=== PATIENT | female | born 1965 | race Asian ===

== ENCOUNTER 2020-02-03 05:18 | Emergency (ER) | payer MEDICAID ==
[~2020-02-03] VITALS: Ht 154.9 cm; Wt 55.5 kg
[2020-02-03] MEDS ORDERED: SIMV-260 PO (05:28)
[2020-02-03] MEDS ORDERED: METF-960 PO (05:28)
[2020-02-03] MEDS ORDERED: LISI-661 PO (05:28)
[2020-02-03 06:37] LABS: BASOPHILS % (AUTO) 0.4 % (0.0-2.0); EOSINOPHILS % (AUTO) 3.6 % (1.0-6.0); HEMOGLOBIN 13.1 g/dL (12.0-16.0); LYMPHOCYTES # (AUTO) 2.3 K/uL (1.0-4.8); LYMPHOCYTES % (AUTO) 41.4 % (22.0-44.0); MEAN CORPUSCULAR HEMOGLOBIN 29.8 pg (26.0-34.0); MEAN CORPUSCULAR HGB CONC 33.5 G/dL (31.0-37.0); MEAN CORPUSCULAR VOLUME 89 fL (80-100); MONOCYTES # (AUTO) 0.3 K/uL (0.1-1.0); MONOCYTES % (AUTO) 5.5 % (2.0-9.0); NEUTROPHILS # (AUTO) 2.7 K/uL (1.8-7.7); NEUTROPHILS % (AUTO) 49.1 % (40.0-70.0); PLATELET COUNT (AUTO) 252 K/uL (150-450); RED BLOOD CELL COUNT(AUTO) 4.38 MIL/uL (4.00-5.20); RED CELL DISTRIBUTION WIDTH 13.2 % (11.5-14.5)
[2020-02-03 06:47] LABS: ANION GAP 5 mmol/L (8-16); CALCIUM, TOTAL 9.6 mg/dL (8.8-10.5); CARBON DIOXIDE 33 mmol/L (22-29); CHLORIDE 104 mmol/L (98-107); GLOMERULAR FILTR. RATE CALC > 60 mL/min (>60); GLUCOSE,RANDOM 137 mg/dL (70-110); POTASSIUM 3.9 mmol/L (3.5-5.1); SODIUM SERUM 142 mmol/L (136-145); UREA NITROGEN, BLOOD 11 mg/dL (7-18)
[2020-02-03 07:08] VITALS: BP 139/81
== END 2020-02-03 07:09 | disposition home or self-care (01) ==
LOC: EMS 05:18
DX: R07.89 Other chest pain (principal); R51 Headache; E11.9 Type 2 diabetes mellitus without complications; I10 Essential (primary) hypertension; Z79.84 Long term (current) use of oral hypoglycemic drugs; Z79.899 Other long term (current) drug therapy
CPT/HCPCS: 93005; 36415-L1; 36415-TC; 71045-TC

== ENCOUNTER 2025-06-18 23:12 | Emergency (ER) | payer MEDICAID ==
[~2025-06-18] VITALS: Ht 154.9 cm; Wt 54.5 kg
[~2025-06-18 23:12] MED LIST: LISI-893 PO; METF-1211 PO; SIMV-260 PO
[2025-06-18 23:21] VITALS: TEMP 98.1
[2025-06-19 01:02] VITALS: BP 139/85; PULSE 74; RESP 14; O2SAT 98
[2025-06-19] MEDS: IBUPROFEN 400 MG TABLET PO ONE (01:32)
== END 2025-06-19 02:18 | disposition home or self-care (01) ==
LOC: EMS 23:16
DX: I10 Essential (primary) hypertension (principal); E11.9 Type 2 diabetes mellitus without complications; E78.5 Hyperlipidemia, unspecified; R51.9 Headache, unspecified; Z79.899 Other long term (current) drug therapy
CPT/HCPCS: 82962; 93005; 99283